=== PATIENT | female | born 1990 | race American Indian/Alaskan Native ===

== ENCOUNTER 2018-01-31 08:54 | Emergency (ER) | payer MEDICARE, OTHER ==
[2018-01-31 09:10] VITALS: BMI 44.2
[2018-01-31 09:11] VITALS: BP 113/75; PULSE 97; RESP 18; TEMP 98.2; O2SAT 99
--- NOTE | 2018-01-31 09:11 | C.PDOC ---
History Of Present Illness 27 y/o female with PMH of bipolar disorder and schizophrenia presents to the ED by ambulance c/o left knee pain s/p fall earlier this morning. Pt was stepping off the bus when she missed the last step and fell to the ground on her left side. No head strike, no LOC. States she is unable to bear weight on the leg or ambulate. Pt not on blood thinners. Pt has not taken any medication for pain. Denies fever, chills, headache, neck pain, back pain, hip pain, ankle pain, vision changes, chest pain, palpitations, syncope, SOB, weakness, numbness, paresthesias, abdominal pain, N/V. Chief Complaint (Nursing): Lower Extremity Problem/Injury History Per: Patient History/Exam Limitations: no limitations Onset/Duration Of Symptoms: Hrs Current Symptoms Are (Timing): Still Present Severity: Mild Past Medical History Reviewed: Historical Data, Nursing Documentation, Vital Signs - Medical History PMH: Bipolar Disorder, Schizophrenia Denies: Diabetes, Hepatitis, HIV, HTN, Chronic Kidney Disease, Seizures, Sexually Transmitted Disease - [facility] PSYCHIAT DRUG THERAP NEC (12/04/14) Family History: States: Unknown Family Hx - Social History Hx Tobacco Use: No Hx Alcohol Use: No Hx Substance Use: No Review Of Systems Constitutional: Positive for: Weakness. Negative for: Fever, Chills Eyes: Negative for: Vision Change Cardiovascular: Negative for: Chest Pain, Palpitations, Light Headedness Respiratory: Negative for: Cough, Shortness of Breath Gastrointestinal: Negative for: Nausea, Vomiting, Abdominal Pain, Diarrhea Genitourinary: Negative for: Dysuria, Frequency Musculoskeletal: Positive for: Leg Pain (left knee). Negative for: Neck Pain, Shoulder Pain, Arm Pain, Back Pain, Hand Pain, Foot Pain Skin: Positive for: Lesions (abrasion left knee). Negative for: Rash, Bruising Neurological: Negative for: Weakness, Numbness, Headache, Dizziness Physical Exam - Physical Exam Appears: Well, Non-toxic, No Acute Distress Skin: Normal Color, Warm, Dry, No Ecchymosis, Other (abrasion left knee) Head: Atraumatic, Normacephalic, No Tenderness, No Swelling, No Abrasion, No Laceration Eye(s): bilateral: Normal Inspection, PERRL, EOMI Ear(s): Bilateral: Other (no hemotympanum) Nose: Normal Oral Mucosa: Moist Tongue: Normal Appearing Lips: Normal Appearing Neck: Normal, Normal ROM, No Midline Cervical Tenderness Cardiovascular: Rhythm Regular Respiratory: Normal Breath Sounds Gastrointestinal/Abdominal: Normal Exam, Soft, No Tenderness Back: Normal Inspection, No Vertebral Tenderness, No Decreased ROM Extremity: Normal ROM, Tenderness (left anterior knee), Capillary Refill (<2seconds), No Deformity, No Swelling Extremity: Left: Unable To Bear Weight, Other (abrasion left anterior knee), Right: Atraumatic, Bilateral: Normal Color And Temperature, Normal ROM Pulses: Left Dorsalis Pedis: Normal, Right Dorsalis Pedis: Normal Neurological/Psych: Oriented x3, Normal Speech, Normal Cognition, Normal Cranial Nerves, No Cerebellar Signs, Normal Motor, Normal Sensation Gait: Unable To Assess Medical Decision Making Medical Decision Making: Initial Plan: --Tylenol --Left knee xray Left Knee Xray: No joint effusion, No osteoarthritis, No fracture. Normal radiographs of left knee Read by Laurel Amador MD. Re-eval --Pt reports decreased pain, still unwilling/unable to ambulate --ANGEL bandage --Crutches Impression: Left Knee Contusion Plan: --Ibuprofen/tylenol for pain --RICE --No strenuous activity --Weight bear as tolerated --Followup with primary within 2 days --Followup with ortho for persistent pain --Return to ER if symptoms worsen Disposition - Disposition Referrals: Josh Sandoval III, MD [Staff Provider] - Disposition: HOME/ ROUTINE Disposition Time: 09:53 Condition: IMPROVED Additional Instructions: Keep left knee compressed and elevated Take Tylenol every 4 hours as needed for pain Ice the area every hour for 20 min at a time, no direct skin contact No strenuous activity Use crutches and weight bear as tolerated Followup with primary doctor or clinic within 2 days Followup with orthopedic doctor if pain persists Return to ED if symptoms worsen Forms: [facility] (Ind[place]ian), Work Excuse - Clinical Impression Clinical Impression: Knee contusion
--- NOTE | 2018-01-31 09:52 | RAD ---
Date of service: 01/31/2018 PROCEDURE: Left Knee Radiographs. HISTORY: Pain. COMPARISON: None. FINDINGS: BONES: Normal. No fracture. JOINTS: Normal. No osteoarthritis. JOINT EFFUSION: None. OTHER FINDINGS: None. IMPRESSION: Normal radiographs of the left knee.
[2018-01-31] MEDS ORDERED: Bacitracin 500 Units/gm Oint Foilpak UD ONE (09:59)
== END 2018-01-31 10:25 | disposition home or self-care (01) ==
LOC: C.ER 08:54
DX: S80.02XA Contusion of left knee, initial encounter (principal); V78.4XXA Person boarding or alighting from bus injured in noncollision transport accident, initial encounter; Y92.89 Other specified places as the place of occurrence of the external cause

== ENCOUNTER 2018-07-05 10:26 | Outpatient (CLI) | payer MEDICARE, OTHER | END 2018-07-05 10:27 | disposition home or self-care (01) | LOC: C.LAB 10:26 ==